=== PATIENT | male | born 1985 | race Asian ===

== ENCOUNTER 2022-09-05 02:50 | Inpatient (IN) | payer BC ==
[2022-09-05] MEDS ORDERED: Ondansetron 4 MG/2 ML SDV IVPUSH ONE (03:15)
[2022-09-05] MEDS ORDERED: Morphine 4 MG/ML VIAL IVPUSH ONE (03:15)
[2022-09-05] MEDS: Sodium Chloride 0.9% 1,000 ML IV SCH ×2 (03:16→04:20)
[2022-09-05 03:32] LABS: ESTIMATED GFR 41 mL/min (>60)
[2022-09-05] MEDS ORDERED: Acetaminophen 500 MG Tab PO ONE (03:34)
[2022-09-05 03:48] LABS: CORONAVIRUS COVID-19 NAA NEGATIVE (NEGATIVE)
[2022-09-05] MEDS ORDERED: Sodium Chloride 0.9% 1,000 ML IV SCH (04:30)
[2022-09-05 05:46] LABS: ESTIMATED GFR 41 mL/min (>60)
[2022-09-05] MEDS ORDERED: Ondansetron 4 MG/2 ML SDV IV PRN (06:30)
[2022-09-05] MEDS ORDERED: NS + KCl 20mEq/L 1,000 ML IV SCH (06:45)
[2022-09-05] MEDS ORDERED: Codeine/guaiFENesin 10-100 MG/5 ML Syrup 5 ML Cup PO STA (06:52)
[2022-09-05] MEDS ORDERED: Albuterol/Ipratropium 3.0-0.5 MG/3 ML Neb Soln NEB ONE (06:52)
[2022-09-05] MEDS ORDERED: Albuterol 0.083% 2.5 MG/3 ML Neb Soln NEB PRN (07:48)
[2022-09-05] MEDS: Azithromycin 500 MG in Sodium Chloride 0.9% 250 ML IV SCH (08:04)
[2022-09-05] MEDS: cefTRIAXone 1 GM Vial IVPUSH SCH (08:04)
[2022-09-05] MEDS: Enoxaparin 40 MG/0.4 ML Syringe SUBCUT SCH (08:17)
[2022-09-05] MEDS: Acetaminophen/HYDROcodone 325-5 MG Tab PO PRN ×3 (08:23→18:07)
[2022-09-05] MEDS: Acetaminophen 325 MG Tab PO PRN ×2 (08:24→16:54)
[2022-09-05] MEDS ORDERED: Magnesium Sulfate/Water 4 GM in Premix Bag 1 BAG IV ONE (10:17)
[2022-09-05] MEDS ORDERED: Potassium Chloride 20 MEQ in Premix Bag 1 BAG IV ONE (10:19)
[2022-09-05] MEDS ORDERED: Potassium Chloride 20 MEQ Tab.ER PO ONE (10:19)
[2022-09-05] MEDS: Albuterol/Ipratropium 3.0-0.5 MG/3 ML Neb Soln NEB SCH ×3 (11:24→20:34)
[2022-09-05] MEDS: Codeine/guaiFENesin 10-100 MG/5 ML Syrup 5 ML Cup PO PRN ×2 (14:05→20:33)
[2022-09-05] MEDS: NS + KCl 20mEq/L 1,000 ML IV SCH (20:34)
[2022-09-06] MEDS: Acetaminophen/HYDROcodone 325-5 MG Tab PO PRN ×2 (00:01→14:22)
[2022-09-06] MEDS: NS + KCl 20mEq/L 1,000 ML IV SCH ×3 (04:45→21:24)
[2022-09-06] MEDS: Acetaminophen 325 MG Tab PO PRN (04:56)
[2022-09-06] MEDS: Enoxaparin 40 MG/0.4 ML Syringe SUBCUT SCH (06:29)
[2022-09-06] MEDS: Albuterol/Ipratropium 3.0-0.5 MG/3 ML Neb Soln NEB SCH ×4 (06:30→21:30)
[2022-09-06 06:51] LABS: ESTIMATED GFR 61 mL/min (>60)
[2022-09-06] MEDS: Azithromycin 500 MG in Sodium Chloride 0.9% 250 ML IV SCH (08:05)
[2022-09-06] MEDS: cefTRIAXone 1 GM Vial IVPUSH SCH (08:39)
[2022-09-06] MEDS: Azithromycin 250 MG Tab PO SCH (09:55)
[2022-09-07] MEDS: Acetaminophen/HYDROcodone 325-5 MG Tab PO PRN ×2 (05:22→13:30)
[2022-09-07] MEDS: NS + KCl 20mEq/L 1,000 ML IV SCH (05:38)
[2022-09-07] MEDS: Albuterol/Ipratropium 3.0-0.5 MG/3 ML Neb Soln NEB SCH ×3 (06:11→16:34)
[2022-09-07] MEDS: Enoxaparin 40 MG/0.4 ML Syringe SUBCUT SCH (06:11)
[2022-09-07 06:51] LABS: ESTIMATED GFR 80 mL/min (>60)
[2022-09-07] MEDS: Codeine/guaiFENesin 10-100 MG/5 ML Syrup 5 ML Cup PO PRN (08:46)
[2022-09-07] MEDS: Azithromycin 250 MG Tab PO SCH (08:48)
[2022-09-07] MEDS: cefTRIAXone 1 GM Vial IVPUSH SCH (08:50)
[2022-09-07] MEDS ORDERED: Magnesium Sulfate/Water 4 GM in Premix Bag 1 BAG IV ONE (10:01)
[2022-09-07] MEDS: Baclofen 10 MG Tab PO SCH ×2 (10:46→14:05)
[2022-09-07] MEDS ORDERED: Aluminum Hydroxide/Magnesium Hydroxide Susp 30 ML Cup PO PRN (13:05)
[2022-09-07] MEDS ORDERED: Baclofen 10 MG Tab PO ONE (13:57)
== END 2022-09-07 16:25 | disposition home or self-care (01) | DRG 720 ==
LOC: FB.ED 02:50 → FB.MS 06:48 → OBSVTOIN 09:26
PROVIDERS: ADMIT Emergency Medicine; ATTEND Family Medicine
DX: A41.9 Sepsis, unspecified organism (principal); J18.9 Pneumonia, unspecified organism; N17.0 Acute kidney failure with tubular necrosis; N30.01 Acute cystitis with hematuria; K52.9 Noninfective gastroenteritis and colitis, unspecified; E86.0 Dehydration; E86.1 Hypovolemia; R74.8 Abnormal levels of other serum enzymes; Z20.822 Contact with and (suspected) exposure to COVID-19; E87.6 Hypokalemia; E83.42 Hypomagnesemia; Z79.899 Other long term (current) drug therapy
CPT/HCPCS: 0241U; 36415; 71045; 74176; 80048; 80053; 81001; 82150; 82247; 82248; 83605; 83690; 83735; 85025; 87040; 87045; 87046; 87086; 87177; 87209; 87230; 87427; 93005; 93010; 94640; 96361; 96365; 96375; 99222; 99232; 99238; 99285; 99285-25; A9270-GY; J0456; J0696; J1650; J2270; J2405; J3475; J3480; J7030; J7050; J7620

== ENCOUNTER 2022-09-18 10:20 | Emergency (ER) | payer BC ==
[2022-09-18 12:19] LABS: ESTIMATED GFR 100 mL/min (>60)
[2022-09-18 12:36] LABS: CORONAVIRUS COVID-19 NAA NEGATIVE (NEGATIVE)
== END 2022-09-18 13:10 | disposition home or self-care (01) ==
LOC: FB.ED 10:20
DX: J18.9 Pneumonia, unspecified organism (principal); R61 Generalized hyperhidrosis; Z20.822 Contact with and (suspected) exposure to COVID-19; Z79.899 Other long term (current) drug therapy
CPT/HCPCS: 0240U; 36415; 80053; 81001; 83605; 83735; 84484; 86140; 87040; 99283